=== PATIENT | female | born 1975 | race Caucasian/White ===

== ENCOUNTER 2017-02-18 20:03 | Emergency (ER) | payer OTHER ==
[~2017-02-18] VITALS: Ht 160 cm; Wt 73.9 kg
[2017-02-18] MEDS ORDERED: KEFLEX500 M1 PO (21:21)
[2017-02-18] MEDS ORDERED: ULTRAM 50MG TAB50 MG PO (21:21)
== END 2017-02-18 21:42 | disposition home or self-care (01) ==
LOC: ER 20:03
DX: S61.011A Laceration without foreign body of right thumb without damage to nail, initial encounter (principal); Z23 Encounter for immunization; W26.8XXA Contact with other sharp object(s), not elsewhere classified, initial encounter; Y93.89 Activity, other specified; Y92.89 Other specified places as the place of occurrence of the external cause; Y99.8 Other external cause status